=== PATIENT | male | born 1965 | race Caucasian/White ===

== ENCOUNTER 2016-11-08 10:45 | Emergency (ER) | payer OTHER ==
[~2016-11-08] VITALS: Ht 180.3 cm; Wt 93.2 kg
[2016-11-08 11:02] LABS: GLUCOSE,POINT OF CARE 163 MG/DL (70-110)
[2016-11-08] MEDS ORDERED: PROPARACAINE HCL 0.5% 15 ML OPHTHALMIC SOLUTION OS ONE (11:45)
[2016-11-08] MEDS ORDERED: FLUORESCEIN SODIUM 1 MG STRIP OS ONE (11:45)
[2016-11-08] MEDS ORDERED: ERYTHROMYCIN 0.5% 3.5 GM TUBE OPHTHALMIC OINTMENT OS ONE (13:15)
[2016-11-08 13:40] VITALS: BP 125/80
== END 2016-11-08 13:55 | disposition home or self-care (01) ==
LOC: EMS 10:46
DX: T15.02XA Foreign body in cornea, left eye, initial encounter (principal); E11.9 Type 2 diabetes mellitus without complications; Y92.89 Other specified places as the place of occurrence of the external cause
CPT/HCPCS: 82962; 99284